=== PATIENT | male | born 1970 | race Caucasian/White ===

== ENCOUNTER → 2022-07-28 | Outpatient (CLI) | payer BC, SELFPAY ==
--- NOTE | 2022-07-28 12:44 | STRESSREP ---
Stress Test Report Date: 07/28/2022 Procedure: Exercise tolerance test Indications: Hypertension Consent: Per the patient Procedure: The patient exercised on a Ho protocol for 9 minutes and 1 seconds completing stage III achieving a peak heart rate of 148 bpm (86% predicted maximal heart rate) with a peak blood pressure 170/88 mmHg and a peak MET capacity of approximately 10.1 MET's. The baseline ECG demonstrated normal sinus rhythm. The peak exercise ECG demonstrated no ischemic changes. Rare PVC was noted with exercise. The functional capacity was considered average. The patient had no complaint of chest discomfort during exercise or recovery. The examination was discontinued secondary to target heart rate being achieved and leg discomfort. Impression: 1. Technically adequate (percent predicted maximal heart rate greater than 85%) exercise tolerance test 2. Peak exercise ECG with no ischemic changes. Negative exercise stress for ischemia or angina. 3. Rare PVC noted with exercise. This note was generated with [employer] software. It may contain incorrect words, spelling, and punctuation that were not noted in checking the note before signing.
== END | disposition home or self-care (01) ==
PROVIDERS: PCP Nurse Practitioner Family; Referring Provider Nurse Practitioner Family; Visit Provider Nurse Practitioner Family
DX: I49.3 Ventricular premature depolarization (principal); I10 Essential (primary) hypertension; F41.8 Other specified anxiety disorders; F43.9 Reaction to severe stress, unspecified
CPT/HCPCS: 93017